=== PATIENT | male | born 1995 | race Caucasian/White ===

== ENCOUNTER 2020-04-10 21:14 | Inpatient (IN) | payer BC ==
[2020-04-10 22:48] LABS: Amphetamine Screen,Urine Not Detected (NotDetected); Barbiturate Screen,Urine Not Detected (NotDetected); Benzodiazepines Screen,Urine Not Detected (NotDetected); Cocaine Screen,Urine Not Detected (NotDetected); Methadone Screen, Urine Not Detected (NotDetected); Opiate Screen,Urine Not Detected (NotDetected); Oxycodone Screen, Urine Not Detected (NotDetected); Phencyclidine Screen,Urine Not Detected (NotDetected); Tricyclic Antidepressant,Urine Not Detected (NotDetected); Urn Cannabinoid Scrn Not Detected (NotDetected)
[2020-04-10] MEDS ORDERED: LORazepam 1 MG TAB PO STA (23:27)
--- NOTE | 2020-04-10 23:32 | ED ---
General Adult HPI - General Chief complaint: Psychiatric Symptoms Stated complaint: Mental Health Time Seen by Provider: 04/10/20 21:31 Source: patient, family, RN notes reviewed, old records reviewed Mode of arrival: ambulatory Limitations: no limitations - History of Present Illness Initial comments: 24-year-old male patient in ED for evaluation of depression with suicidal ideations. Patient reports this has been worse the last 2 weeks. Denies anything to harm himself. Reports been very anxious. He denies any physical complaints. He denies any other acute complaints. Systemic: Pt denies fatigue, fever/chills, rash. Pt denies weakness, night sweats, weight loss. Neuro: Pt denies headache, visual disturbances, syncope or pre-syncope. HEENT: Pt denies ocular discharge or irritation, otalgia, rhinorrhea, pharyngitis or notable lymphadenopathy. Cardiopulmonary: Pt denies chest pain, SOB, heart palpitations, dyspnea on exertion. Abdominal/GI: Pt denies abdominal pain, n/v/d. : Pt denies dysuria, burning w/ urination, frequency/urgency. Denies new onset urinary or bowel incontinence. MSK: Pt denies myalgia, loss of strength or function in extremities. Neuro: Pt denies new onset weakness, paresthesias. - Related Data Allergies Allergy/AdvReac Type Severity Reaction Status Date / Time No Known Allergies Allergy Verified 04/10/20 23:30 Review of Systems ROS Statement: Those systems with pertinent positive or pertinent negative responses have been documented in the HPI. ROS Other: All systems not noted in ROS Statement are negative. General Exam - General Exam Comments Initial Comments: Constitutional: NAD, AOX3, Pt has pleasant affect. HEENT: NC/AT, trachea midline, neck supple, no lymphadenopathy. External ears appear normal, without discharge. Mucous membranes moist. Eyes PERRLA, EOM intact. There is no scleral icterus. No pallor noted. Cardiopulmonary: RRR, no murmurs, rubs or gallops, no JVD noted. Lungs CTAB in anterior and posterior doyle. No peripheral edema. Abdominal exam: Abdomen soft and non-distended. Neuro: CN II-XII grossly intact. No nuchal rigidity. MSK: Full active ROM in upper and lower extremities, 5/5 stregnth. Limitations: no limitations Course Vital Signs 04/10/20 21:16 Temperature 98.2 F Pulse Rate 65 Respiratory 16 Rate Blood Pressure 138/81 O2 Sat by Pulse 99 Oximetry Medical Decision Making - Medical Decision Making 24 old male patient ED for depression and suicidal ideations. Does not any action to harm himself. Vital signs are stable, afebrile. Physical exam is negative for acute pathology. Patient elevated her to psychiatric services recommended for admission. Patient is agreeable to this. Case discussed with Dr. Castillo. - Lab Data Lab Results 04/10/20 Range/Units 22:02 Urine Opiates Screen Not Detected (NotDetected) Ur Oxycodone Screen Not Detected (NotDetected) Urine Methadone Screen Not Detected (NotDetected) Ur Propoxyphene Screen Not Detected (NotDetected) Ur Barbiturates Screen Not Detected (NotDetected) U Tricyclic Antidepress Not Detected (NotDetected) Ur Phencyclidine Scrn Not Detected (NotDetected) Ur Amphetamines Screen Not Detected (NotDetected) U Methamphetamines Scrn Not Detected (NotDetected) U Benzodiazepines Scrn Not Detected (NotDetected) Urine Cocaine Screen Not Detected (NotDetected) U Marijuana (THC) Screen Not Detected (NotDetected) Disposition Clinical Impression: Depression Disposition: ADMITTED IP TO THIS HOSP Condition: Serious Is patient prescribed a controlled substance at d/c from ED?: No Referrals: Erik Landaverde MD [Primary Care Provider] - 1-2 days
[2020-04-11] MEDS ORDERED: MAG HYDROX/AL HYDROX/SIMETH 30 ML CUP PO PRN (00:53)
[2020-04-11] MEDS ORDERED: MAGNESIUM HYDROXIDE 2,400 MG/10 ML CUP PO PRN (00:53)
[2020-04-11] MEDS ORDERED: ACETAMINOPHEN TAB 325 MG TAB PO PRN (00:53)
[2020-04-11] MEDS ORDERED: LORazepam 2 MG/ML INJ IM PRN (00:54)
[2020-04-11] MEDS ORDERED: HALOPERIDOL LACTATE 5 MG/ML 1 ML VIAL IM PRN (00:54)
[2020-04-11] MEDS ORDERED: haloperidoL 5 MG TAB PO PRN (00:54)
--- NOTE | 2020-04-11 02:30 | P.MDCNMH ---
History of Present Illness H&P Date: 04/11/20 Chief Complaint: depression , suicidal ideation 24 year old male with anxiety patient comes in due to anxiety , OCD, depression and suicidal ideation. he denies any medical concerns at this time except for GI upset. and heart burn. he does not take any medications for that , he denies any GI bleeding , domingo, or coffee ground vomiting. he denies any fever, chills, URI symptoms he denies any abd pain or rashes Review of Systems Pertinent positives as noted in HPI. All other systems were reviewed and are negative Past Medical History History of Any Multi-Drug Resistant Organisms: None Reported Past Surgical History: Tonsillectomy Past Psychological History: No Psychological Hx Reported Smoking Status: Former smoker - Past Family History family Family Medical History: No Reported History Medications and Allergies Home Medications Medication Instructions Recorded Confirmed Type Propranolol [Inderal] 40 mg PO BID PRN 04/10/20 04/11/20 History Sertraline [Zoloft] 150 mg PO DAILY@0700 04/10/20 04/11/20 History hydrOXYzine HCL 25 mg PO Q8H PRN 04/10/20 04/11/20 History Allergies Allergy/AdvReac Type Severity Reaction Status Date / Time No Known Allergies Allergy Verified 04/11/20 01:50 Physical Exam Vitals: Vital Signs Temp Pulse Pulse Resp BP BP Pulse Ox 04/11/20 01:15 98.0 F 59 L 16 119/69 99 04/10/20 21:16 98.2 F 65 16 138/81 99 Intake and Output 04/10/20 04/10/20 04/11/20 14:59 22:59 06:59 Other: Weight 118.841 kg 118.926 kg Constitutional: No acute distress, conversant, pleasant Eyes: Anicteric sclerae, moist conjunctiva, Pupils equal round reactive to light ENMT: NC/AT Oropharynx clear, no erythema, or exudates Neck: Supple, FROM, no masses, or JVD No carotid bruits No thyromegaly Lungs: Clear to auscultation Clear to percussion Normal respiratory effort, no accessory muscle use Cardiovascular: Heart regular in rate and rhythm, No murmurs, gallops, or rubs No peripheral edema Abdominal: Soft Nontender, no guarding, rebound or rigidity Abdomen moving with respiration Normoactive bowel sounds No hepatomegaly, No splenomegaly No palpable mass No abdominal wall hernia noted Skin: Normal temperature, tone, texture, turgor No induration No subcutaneous nodules No rash, lesions No ulcers Extremities: No digital cyanosis No clubbing Pedal pulses intact and symmetrical Radial pulses intact and symmetrical No calf tenderness Psychiatric: Alert and oriented to person, place and time depressed affect Neuro Muscles Strength 5/5 in all 4 extremities Sensation to light touch grossly present throughout Cranial nerves II-XII grossly intact No focal sensory deficits Lymphatics: no palpable cervical or supraclavicular , or inguinal lymph nodes Cranial Nerve Examination - Cranial Nerves Cranial Nerve II- Optic: Intact Cranial Nerve III- Oculomotor: Intact Cranial Nerve IV- Trochlear: Intact Cranial Nerve V- Trigeminal: Intact Cranial Nerve - Abducens: Intact Cranial Nerve VII- Facial: Intact Cranial Nerve VIII- Auditory: Intact Cranial Nerve IX- Glossopharyngeal: Intact Cranial Nerve X- Vagus: Intact Cranial Nerve XI- Accessory: Intact Cranial Nerve XII- Hypoglossal: Intact Assessment and Plan Assessment: anxiety depression , suicidal ideation management per psych Obesity counseled regarding life style modification GERD maalox PPI Follow-up labs Thank you for allowing us to participate in the care of this patient. We will follow peripherally. Do not hesitate to contact us with questions. Someone can be reached from the [facility] hospitalist group at all hours of the day at [phone].
[2020-04-11 03:46] LABS: Amorphous Sediment,Urine Many /hpf; Appearance,Urine Turbid (Clear); Bilirubin,Urine Negative (Negative); Blood,Urine Negative (Negative); Color,Urine Yellow; Glucose,Urine (UA) Negative (Negative); Ketones,Urine Trace (Negative); Leukocyte Esterase,Urine Negative (Negative); Mucus,Urine Many /hpf; Nitrite,Urine Negative (Negative); PH, Urine 5.5 (5.0-8.0); Protein,Urine Trace (Negative); RBC,Urine 2 /hpf (0-5); Specific Gravity,Urine 1.027 (1.001-1.035); Urobilinogen,Urine <2.0 mg/dL (<2.0); WBC,Urine 2 /hpf (0-5)
[2020-04-11] MEDS: PANTOPRAZOLE 40 MG TABLET PO SCH (08:39)
[2020-04-11] MEDS ORDERED: MELATONIN 5 MG TABLET PO PRN (14:11)
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
[2020-04-11] MEDS: VENLAFAXINE HCL ER 37.5 MG CAP PO SCH (14:44)
[2020-04-11 18:27] LABS: Glucose,Whole Blood 118 mg/dL (75-99)
[2020-04-11] MEDS: QUEtiapine 25 MG TAB PO SCH (20:45)
[2020-04-11] MEDS: LORazepam 1 MG TAB PO PRN (20:46)
[2020-04-12 06:59] VITALS: RESP 16
[2020-04-12] MEDS: PANTOPRAZOLE 40 MG TABLET PO SCH (08:12)
[2020-04-12] MEDS: QUEtiapine 25 MG TAB PO SCH (08:12)
[2020-04-12] MEDS: VENLAFAXINE HCL ER 37.5 MG CAP PO SCH (08:12)
[2020-04-12 08:54] LABS: Basophils # (A) 0.1 k/uL (0-0.2); Basophils % (A) 1 %; Eosinophils # (A) 0.1 k/uL (0-0.7); Eosinophils % (A) 1 %; HCT 53.2 % (39.0-53.0); HGB 18.5 gm/dL (13.0-17.5); Lymphocytes # (A) 2.6 k/uL (1.0-4.8); Lymphocytes % (A) 31 %; MCH 29.9 pg (25.0-35.0); MCHC 34.9 g/dL (31.0-37.0); MCV 85.9 fL (80.0-100.0); Mean Platelet Volume 6.9; Monocytes # (A) 0.5 k/uL (0-1.0); Monocytes % (A) 6 %; Neutrophils # (A) 4.9 k/uL (1.3-7.7); Neutrophils % (A) 59 %; Platelet Count 234 k/uL (150-450); RDW 12.7 % (11.5-15.5); WBC 8.4 k/uL (3.8-10.6)
[2020-04-12 08:59] LABS: ALT 41 U/L (4-49); AST 28 U/L (17-59); African American GFR (CKD) >90 (>60 ml/min/1.73 sqM); Albumin 4.9 g/dL (3.5-5.0); Alkaline Phosphatase 73 U/L (38-126); Anion Gap 8 mmol/L; Blood Urea Nitrogen 16 mg/dL (9-20); Calcium 10.1 mg/dL (8.4-10.2); Carbon Dioxide 30 mmol/L (22-30); Chloride 103 mmol/L (98-107); Cholesterol 214 mg/dL (<200); Glucose 96 mg/dL (74-99); HDL Cholesterol 37 mg/dL (40-60); LDL Cholesterol,Calculated 149 mg/dL (0-99); Non-African American GFR(CKD) 88 (>60 ml/min/1.73 sqM); Potassium 4.6 mmol/L (3.5-5.1); Sodium 141 mmol/L (137-145); Total Protein 8.2 g/dL (6.3-8.2); Triglycerides 141 mg/dL (<150)
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
[2020-04-12] MEDS ORDERED: QUEtiapine 25 MG TAB PO SCH (21:00)
[2020-04-12] MEDS ORDERED: QUEtiapine 50 MG TAB PO SCH (21:00)
[2020-04-13] MEDS: PANTOPRAZOLE 40 MG TABLET PO SCH (08:59)
[2020-04-13] MEDS: VENLAFAXINE HCL ER 75 MG CAP PO SCH (08:59)
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
[2020-04-13] MEDS: hydrOXYzine pamoate 25 MG CAP PO SCH ×2 (11:42→20:54)
[2020-04-13] MEDS: LORazepam 1 MG TAB PO PRN (12:56)
[2020-04-13] MEDS ORDERED: QUEtiapine 50 MG TAB PO SCH (21:00)
[2020-04-14 06:49] VITALS: BP 132/69; PULSE 67; TEMP 97.9
[2020-04-14] MEDS: hydrOXYzine pamoate 25 MG CAP PO SCH (08:34)
[2020-04-14] MEDS: VENLAFAXINE HCL ER 75 MG CAP PO SCH (08:34)
[2020-04-14] MEDS: PANTOPRAZOLE 40 MG TABLET PO SCH (08:34)
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
== END 2020-04-14 12:45 | disposition home or self-care (01) | DRG 882 ==
LOC: EC 21:14 → 3MHU 04-11 00:34
PROVIDERS: ADMIT Psychiatry & Neurology Psychiatry; ATTEND Psychiatry & Neurology Psychiatry
DX: F42.9 Obsessive-compulsive disorder, unspecified (principal); R45.851 Suicidal ideations; F41.9 Anxiety disorder, unspecified; F32.9 Major depressive disorder, single episode, unspecified; G47.00 Insomnia, unspecified; K21.9 Gastro-esophageal reflux disease without esophagitis; Z79.899 Other long term (current) drug therapy; Z20.828 Contact with and (suspected) exposure to other viral communicable diseases; E66.9 Obesity, unspecified; Z68.35 Body mass index [BMI] 35.0-35.9, adult; Z90.89 Acquired absence of other organs
CPT/HCPCS: 80053; 80061; 80306; 81001; 82075; 83036; 84443; 85025; 87635; 99285